=== PATIENT | female | born 1970 | race African-American/Black ===

== ENCOUNTER 2021-02-06 23:39 | Emergency (ER) | payer MEDICAID ==
[~2021-02-06] VITALS: Ht 170.2 cm; Wt 92.2 kg
[2021-02-07 01:20] VITALS: BP 144/74
[2021-02-07] MEDS ORDERED: CETI10CA11 PO (01:41)
[2021-02-07] MEDS ORDERED: HYDR453.3 TP (01:41)
== END 2021-02-07 01:45 | disposition home or self-care (01) ==
LOC: ER 23:39
DX: L25.9 Unspecified contact dermatitis, unspecified cause (principal)
CPT/HCPCS: 86592; 86593; 86780; 99283

== ENCOUNTER 2021-03-08 19:11 | Emergency (ER) | payer MEDICAID ==
[~2021-03-08] VITALS: Ht 170.2 cm; Wt 91.0 kg
[~2021-03-08 19:11] MED LIST: CETI10CA11 PO; HYDR453.3 TP
[2021-03-08 20:16] LABS: CLARITY URINE TURBID (CLEAR); COLOR URINE YELLOW (YELLOW); KETONES URINE TRACE (NEGATIVE); LEUKOCYTE ESTERASE URINE NEGATIVE (NEGATIVE); NITRITE URINE NEGATIVE (NEGATIVE); OCCULT BLOOD URINE 1+ (NEGATIVE); PROTEIN URINE TRACE (NEGATIVE); SPECIFIC GRAVITY URINE 1.033 (1.005-1.030); UROBILINOGEN URINE 0.2 E.U./dL (0.2-1.0)
[2021-03-08 20:20] VITALS: BP 122/69
== END 2021-03-08 20:49 | disposition home or self-care (01) ==
LOC: ER 19:11
DX: R07.89 Other chest pain (principal); R30.0 Dysuria
CPT/HCPCS: 81003; 81025; 99284